=== PATIENT | female | born 1935 | race Caucasian/White ===

== ENCOUNTER → 2017-05-05 | Emergency (ER) | payer MEDICARE, OTHER | END | disposition disaster alternative care site (69) | LOC: GAMB 11:50 | DX: R53.1 Weakness (principal); W19.XXXA Unspecified fall, initial encounter ==

== ENCOUNTER → 2017-06-01 | Outpatient (CLI) | payer MEDICARE, OTHER | END | disposition disaster alternative care site (69) | LOC: GAMB 11:29 | DX: R41.82 Altered mental status, unspecified (principal); I48.2 Chronic atrial fibrillation; I10 Essential (primary) hypertension; Z79.899 Other long term (current) drug therapy | CPT/HCPCS: A0425; A0429 ==

== ENCOUNTER → 2017-07-21 | Outpatient (CLI) | payer MEDICARE, OTHER ==
--- NOTE | ~2017-07-21 | ESTC ---
Cardiac Perfusion Imaging Demographics Patient Name EDY Witt Gender Female Patient Number [id number] Race Visit Number [id number] Ethnicity [employer] ID Room Number Accession Number [id number] Height 67 inches Date of 1935 Weight 222 pounds Interpreting JUNIOR Pelletier Date of study 07/21/2017 Physician Andre Patel MD Supervising MD/MLP Andre Patel NM Technologist Joellen Navarro MD Ordering Physician Andre Patel Stress MD binder technician Stress ECG Reading Andre Patel Nurse Iraida Meza RN Physician MD Kareem Carvajal RN The procedure was explained in detail to the patient. Risks, complications and alternative treatments were reviewed. Written consent was obtained. Medications Reviewed with Patient prior to Procedure. Procedure Procedure Type: Nuclear Stress Test:Pharmacological, Lexiscan, Cardiolite Stress Test Procedure Start time: 07/21/2017 08:35 Indications: Dyspnea with exertion. Risk Factors The patient risk factors include:treated hypertension. Conclusions Impression ECG portion of lexiscan stress test is clinically negative for ischemia by diagnostic criteria. Myocardial perfusion imaging is essentially normal. Overall left ventricular systolic function was normal without regional wall motion abnormalities. Calculated LVEF is 74% and TID ratio is 0.99. Stress Protocols Resting ECG NSR Resting HR:65 bpm Resting BP:135/63 mmHg Pre-stress physical exam: Patient assessed by Dr. Shelton prior to testing. Stress Protocol:Pharmacologic Peak HR:80 bpm HR/BP product:[id number] Peak BP:141/63 mmHg Predicted HR: 138 bpm % of predicted HR: 58 ECG Findings No ECG changes suggestive of ischemia. Arrhythmias No rhythm abnormality. Symptoms Shortness of breath. Stress Interpretation Appropriate hemodynamic response to Lexiscan. No significant ST-T wave changes with Lexiscan. ECG portion is negative for ischemia by diagnostic criteria. Imaging Results Summed scores - Summed stress score: 10 - Summed rest score: 9 - Summed difference score: 1 Stress ejection Ejection fraction:74 % EDV :104 ml ESV :27 ml Stroke volume :77 ml LV mass :138 gr Imaging Protocols Rest Stress Isotope:Tc99m Sestamibi IV Isotope: Tc99m Sestamibi IV Isotope dose:14.4 mCi Isotope dose:43.4 mCi Date:07/21/2017 07:57 Date:07/21/2017 09:38 Technique: SPECT Technique: Gated Supine SPECT Supine Scan Time:45-60 minutes post Scan Time:45-60 minutes post injection injection Procedure Medications - Regadenoson (Lexiscan) 0.4 mg IV over 10-15 sec. I.V. 0.4 mg. Medical History Admission Data Admission date: 07/21/2017 Admission Time: 07:27 Hospital Status: Outpatient. Signatures dtt: JACINTO BARBER dtd: 07/21/17 0835 Physician Self Edit
== END | disposition disaster alternative care site (69) ==
LOC: GRAD 07:27
DX: R06.09 Other forms of dyspnea (principal); Z86.79 Personal history of other diseases of the circulatory system
CPT/HCPCS: A9500; J2785